=== PATIENT | female | born 1975 | race Caucasian/White ===

== ENCOUNTER 2017-12-02 01:15 | Observation (INO) | payer BC, OTHER ==
[2017-12-02] VITALS (14 sets, daily range): BP systolic 89–113; BP diastolic 51–71; PULSE 57–69; RESP 14–18; TEMP 98–98.4; O2SAT 97–100
[~2017-12-02 01:15] MED LIST: ALBUAER3 INH; AZIT250T3 PO; BENZ100 PO; ERYTOIN10 EACH EYE
[2017-12-02] MEDS ORDERED: IBUP1TAB5 PO (01:57)
--- NOTE | 2017-12-02 02:07 | PD ---
HPI Chief Complaint: Dizziness Time Seen by Provider: 01:28 Travel History International Travel<30 days: No Contact w/Intl Traveler<30days: No Traveled to known affect area: No History of Present Illness HPI The patient is a 42 year old female who presents to the [facility] emergency department with a history of central chest pain, shortness of breath, nausea, diaphoresis that has been intermittently occurring with exercise over the last 2 months. The first episode occurred when she was climbing up the light house. The patient reports that she got lightheaded and nearly passed out. The patient went to her primary care physician, Dr. Briones and did have additional testing done. Additional testing included a myocardial perfusion scan, no appreciable ischemia was noted when this was done on September at [facility]. The patient was noted at that time to have a 55% ejection fraction. She was told that she had valvular heart abnormalities the echo results available for review at this time. The patient reports that she had another episode of this prior to arrival. She denies having a cardiac catheterization. She has not been seen by a bridge painter. The patient reports that she just started her menstrual cycle today. She denies ever having a problem with anemia. She reports that her menstrual cycles are heavy. She reports taking ibuprofen as needed for cramping related to her cycle. She reports having nausea with the chest pain, however no vomiting. She denies any prior history of cardiac disease, DVT, or PE. On review of systems otherwise, the patient denies having any recent fevers, cough or congestion, neck pain, abdominal pain, diarrhea, urinary symptoms, or other neurologic symptoms. LMP: Started today PFSH Past Medical History Narrative Medical The patient's past medical history is reportedly significant for hypoglycemia. Diminished Hearing: No Medical other: Yes (hypoglycemia) ?: Not Past Surgical History Narrative Surgical The patient's past surgical history is significant for a 1. Gynecologic Surgery: Yes () Social History Alcohol Use: No Tobacco Use: No Substance Use: No Allergies-Medications (Allergen,Severity, Reaction): Coded Allergies: No Known Allergies (Unverified Allergy, Unknown, 12/02/17) Reported Meds & Prescriptions Reported Meds & Active Scripts Active Reported Ibuprofen 400 Mg Tab 400 Mg PO Q8H PRN Review of Systems Except as stated in HPI: all other systems reviewed are Neg General / Constitutional: No: Fever Eyes: No: Visual changes HENT: Positive: Lightheadedness, No: Headaches, Congestion Cardiovascular: Positive: Chest Pain or Discomfort, Diaphoresis, Dyspnea on exertion Respiratory: Positive: Shortness of Breath, No: Cough Gastrointestinal: Positive: Nausea, No: Vomiting, Diarrhea, Abdominal Pain Genitourinary: No: Dysuria Musculoskeletal: No: Pain Skin: No Rash Neurologic: Positive: Dizziness, No: Weakness, Focal Abnormalities, Change in Mentation, Slurred Speech, Sensory Disturbance Psychiatric: No: Depression Endocrine: No: Polydipsia Hematologic/Lymphatic: No: Easy Bruising Physical Exam Narrative General: The patient is a well-developed well-nourished female in no acute. Head and Neck exam: Head is normocephalic atraumatic. Eyes: EOMI, pupils are equal round and reactive to light. Nose: Midline septum with pink mucous membranes Mouth: Dentition unremarkable. Moist mucus membranes. Posterior oropharynx is not erythematous. No tonsillar hypertrophy. Uvula midline. Airway patent. Neck: No palpable lymphadenopathy. No nuchal rigidity. No thyromegaly. Cardiovascular: Regular rate and rhythm without murmurs, gallops, or rubs. No pulse deficit to the extremities on simultaneous auscultation and palpation of her radial artery. Lungs: Clear to auscultation bilaterally. No wheezes, rhonchi, or rales. Abdomen: Soft, without tenderness to palpation in all 4 quadrants of the abdomen. No guarding, rebound, or rigidity. Normal bowel sounds are audible. No tenderness on palpation of McBurney's point. Negative Rebolledo sign. Extremities: No clubbing, cyanosis, or edema. 2+ pulses in all 4 extremities. No calf tenderness on palpation. Back: No spinous process tenderness to palpation. No costovertebral angle tenderness to palpation. Neurologic Exam: Grossly nonfocal. Skin Exam: No rash noted. Intact skin that is warm and dry. Data Data Last Documented VS Vital Signs Date Time Temp Pulse Resp B/P (MAP) Pulse Ox O2 Delivery O2 Flow Rate FiO2 12/02/17 02:25 57 14 97/62 (74) 59 14 104/66 (79) 64 14 103/68 (80) 12/02/17 02:12 98 Room Air 12/02/17 01:17 98.1 Orders Orders Electrocardiogram (12/02/17 01:50) Complete Blood Count With Diff (12/02/17 01:50) Comprehensive Metabolic Panel (12/02/17 01:50) Creatine Kinase (Cpk) (12/02/17 01:50) Ckmb (Isoenzyme) Profile (12/02/17 01:50) Troponin I (12/02/17 01:50) B-Type Natriuretic Peptide (12/02/17 01:50) Prothrombin Time / Inr (Pt) (12/02/17 01:50) Act Partial Throm Time (Ptt) (12/02/17 01:50) Magnesium (Mg) (12/02/17 01:50) Chest, Single Ap (12/02/17 01:50) Iv Access Insert/Monitor (12/02/17 01:50) Ecg Monitoring (12/02/17 01:50) Oximetry (12/02/17 01:50) Orthostatic Vital Signs (12/02/17 01:50) Ed Urine Pregnancytest Poc (12/02/17 01:50) Aspirin Chew (Aspirin Chew) (12/02/17 02:45) Sodium Chlor 0.9% 1000 Ml Inj (Ns 1000 M (12/02/17 02:45) CKMB (12/02/17 02:55) CKMB% (12/02/17 02:55) Admit Order (Ed Use Only) (12/02/17 04:34) Activity Bed Rest With Brp (12/02/17 04:34) Vital Signs (Adult) Q4H (12/02/17 04:34) Cardiac Rhythm .As Directed (12/02/17 04:34) Notify Dr: Other .PRN (12/02/17 04:34) Notify Parameters (12/02/17 04:34) Resp Oxygen Nasal Cannula (12/02/17 ) Diet Npo (12/02/17 Breakfast) Ckmb (Isoenzyme) Profile (12/02/17 06:00) Ckmb (Isoenzyme) Profile (12/02/17 09:00) Troponin I (12/02/17 06:00) Troponin I (12/02/17 09:00) Electrocardiogram (12/02/17 06:00) Electrocardiogram (12/02/17 09:00) ^ Obtain (12/02/17 04:34) Sodium Chlor 0.9% 1000 Ml Inj (Ns 1000 M (12/02/17 04:34) Sodium Chloride 0.9% Flush (Ns Flush) (12/02/17 04:45) Sodium Chloride 0.9% Flush (Ns Flush) (12/02/17 09:00) Acetaminophen (Tylenol) (12/02/17 04:45) Discovery Guide / Telemetry CAMACHO.Q8H (12/02/17 04:34) Labs Laboratory Tests Test 12/02/17 02:09 12/02/17 02:55 White Blood Count 8.6 TH/MM3 Red Blood Count 4.67 MIL/MM3 Hemoglobin 13.9 GM/DL Hematocrit 41.4 % Mean Corpuscular Volume 88.7 FL Mean Corpuscular Hemoglobin 29.7 PG Mean Corpuscular Hemoglobin Concent 33.5 % Red Cell Distribution Width 13.7 % Platelet Count 246 TH/MM3 Mean Platelet Volume 9.3 FL Neutrophils (%) (Auto) 63.0 % Lymphocytes (%) (Auto) 25.6 % Monocytes (%) (Auto) 9.0 % Eosinophils (%) (Auto) 1.4 % Basophils (%) (Auto) 1.0 % Neutrophils # (Auto) 5.4 TH/MM3 Lymphocytes # (Auto) 2.2 TH/MM3 Monocytes # (Auto) 0.8 TH/MM3 Eosinophils # (Auto) 0.1 TH/MM3 Basophils # (Auto) 0.1 TH/MM3 CBC Comment DIFF FINAL Differential Comment Prothrombin Time 10.3 SEC Prothromb Time International Ratio 1.0 RATIO Activated Partial Thromboplast Time 23.6 SEC B-Type Natriuretic Peptide 25 PG/ML Blood Urea Nitrogen 9 MG/DL Creatinine 0.71 MG/DL Random Glucose 83 MG/DL Total Protein 7.2 GM/DL Albumin 3.9 GM/DL Calcium Level 8.6 MG/DL Magnesium Level 2.1 MG/DL Alkaline Phosphatase 82 U/L Aspartate Amino Transf (AST/SGOT) 12 U/L Alanine Aminotransferase (ALT/SGPT) 16 U/L Total Bilirubin 0.3 MG/DL Sodium Level 140 MEQ/L Potassium Level 3.7 MEQ/L Chloride Level 107 MEQ/L Carbon Dioxide Level 20.4 MEQ/L Anion Gap 13 MEQ/L Estimat Glomerular Filtration Rate 91 ML/MIN Total Creatine Kinase 102 U/L Creatine Kinase MB 1.0 NG/ML Troponin I LESS THAN 0.02 NG/ML MDM Medical Decision Making Medical Screen Exam Complete: Yes Emergency Medical Condition: Yes Medical Record Reviewed: Yes Differential Diagnosis Acute coronary syndrome, versus pulmonary embolism, versus orthostasis, vasovagal near syncope, versus hypoglycemia, versus symptomatic anemia Narrative Course During the course of the patient's emergency department visit, the patient's history, examination, and differential diagnosis were reviewed with the patient. The patient was placed on a media monitor with oximetry and frequent blood pressure monitoring. The patient had IV access obtained and blood work sent for analysis. The patient will have orthostatic vital signs done. The patient had an EKG done on arrival. The patient's EKG shows sinus bradycardia heart rate of 56, QRS duration is 82 ms, QTC [address] segment elevation. T waves are inverted in V1. Orthostatic vital signs were negative for orthostasis. The patient is however noted to be slightly bradycardic which could be related to her exercise regimen. The patient was initially provided normal saline 1 L IV fluid bolus, aspirin 324 mg p.o. 1. The patient's laboratory studies were reviewed and remarkable for a white count of 8.6, hemoglobin 13.9, platelets 246 with 9 monocytes, CMP is remarkable for CO2 20.4, AST 12, cardiac enzymes within normal limits, BNP 25, PT 10.3, PTT 23.6. Glucose is within normal limits. Radiology studies were reviewed and remarkable for Last Impressions Chest X-Ray 12/02/17 0150 Signed Impressions: CONCLUSION: Negative examination. Given the patient's exercise-induced chest pain with shortness of breath, lightheaded sensation, diaphoresis, the patient will be admitted to the chest pain center for rule out serial cardiac enzyme protocol followed by evaluation by the bridge painter. The patient's results were discussed with the patient, including the plan of care. I explained that further testing and/ or monitoring is indicated based on the patient's history, examination, and/ or laboratory findings. Therefore, I recommended admission for additional evaluation. The patient expressed understanding and was agreeable with this plan. The patient was admitted to the hospital in stable condition and sent to a bed under the care of the chest pain center. Diagnosis Primary Impression: Chest pain, rule out acute myocardial infarction Admitting Information Admitting Physician Requests: Observation Rebecca Sandoval MD Dec 02, 2017 02:07
[2017-12-02 02:16] LABS: AUTOMATED NEUTROPHIL # 5.4 TH/MM3 (1.8-7.7); BASOPHIL # 0.1 TH/MM3 (0-0.2); EOSINOPHIL # 0.1 TH/MM3 (0-0.4); EOSINOPHIL % 1.4 % (0.0-4.0); HEMATOCRIT 41.4 % (35.0-46.0); HEMOGLOBIN 13.9 GM/DL (11.6-15.3); LYMPH % 25.6 % (9.0-44.0); LYMPHOCYTE # 2.2 TH/MM3 (1.0-4.8); MEAN CELL VOLUME 88.7 FL (80.0-100.0); MEAN CORPUSCULAR HEMOGLOBIN 29.7 PG (27.0-34.0); MEAN CORPUSCULAR HGB CONC 33.5 % (32.0-36.0); MEAN PLATELET VOLUME 9.3 FL (7.0-11.0); MONOCYTE # 0.8 TH/MM3 (0-0.9); PLATELET COUNT 246 TH/MM3 (150-450); RED BLOOD COUNT 4.67 MIL/MM3 (4.00-5.30); RED CELL DISTRIBUTION WIDTH 13.7 % (11.6-17.2); WHITE BLOOD COUNT 8.6 TH/MM3 (4.0-11.0)
--- NOTE | 2017-12-02 02:26 | RADRPT ---
EXAM DATE: 12/02/2017 2:16 AM EDT AGE/SEX: 42 years / Female INDICATIONS: Vomiting, syncope, short of breath. CLINICAL DATA: This is the patient's initial encounter. Patient reports that signs and symptoms have been present for 1 day and indicates a pain score of 0/10. MEDICAL/SURGICAL HISTORY: None. None. COMPARISON: No prior exams available for comparison. FINDINGS: A single AP view of the chest demonstrates the lungs to be symmetrically aerated without evidence of mass, infiltrate or effusion. The cardiomediastinal contours are unremarkable. Osseous structures a re intact. CONCLUSION: Negative examination. Electronically signed by: Rubén Ingram MD 12/02/2017 2:25 AM EDT
[2017-12-02 02:27] LABS: PROTHROMBIN TIME - PATIENT 10.3 SEC (9.8-11.6)
[2017-12-02] MEDS ORDERED: ASPIRIN 81 MG CHEW TAB CHEW ONE (02:45)
[2017-12-02] MEDS ORDERED: SODIUM CHLOR 0.9% 1000 ML INJ 1,000 ML IV ONE (02:45)
[2017-12-02 04:07] LABS: ALKALINE PHOSPHATASE 82 U/L (45-117); TOTAL BILIRUBIN ADULT 0.3 MG/DL (0.2-1.0); TOTAL PROTEIN 7.2 GM/DL (6.4-8.2); TROPONIN I LESS THAN 0.02 NG/ML (0.02-0.05)
[2017-12-02 04:09] LABS: ALBUMIN 3.9 GM/DL (3.4-5.0); ALT (GPT) 16 U/L (10-53); AST (GOT) 12 U/L (15-37); BICARBONATE 20.4 MEQ/L (21.0-32.0); BLOOD UREA NITROGEN 9 MG/DL (7-18); CALCIUM 8.6 MG/DL (8.5-10.1); CHLORIDE 107 MEQ/L (98-107); CREATININE 0.71 MG/DL (0.50-1.00); GLOMERULAR FILTRATION RATE 91 ML/MIN (>89); GLUCOSE,RANDOM 83 MG/DL (74-106); MAGNESIUM 2.1 MG/DL (1.5-2.5); SODIUM (NA) 140 MEQ/L (136-145)
[2017-12-02] MEDS ORDERED: ACETAMINOPHEN 500 MG CPLT PO PRN (04:45)
[2017-12-02] MEDS ORDERED: SODIUM CHLORIDE 0.9% FLUSH 10 ML FLUSH IV FLUSH PRN (04:45)
[2017-12-02 07:09] LABS: TROPONIN I LESS THAN 0.02 NG/ML (0.02-0.05)
[2017-12-02] MEDS: SODIUM CHLORIDE 0.9% FLUSH 10 ML FLUSH IV FLUSH SCH ×2 (08:56→21:00)
[2017-12-02] MEDS: SODIUM CHLOR 0.9% 1000 ML INJ 1,000 ML IV SCH ×2 (08:56→14:34)
--- NOTE | 2017-12-02 09:05 | HHI.HP ---
HPI Primary Care Physician Jeremy Cartwright DO Chief Complaint Dizziness History of Present Illness 42-year-old female with no significant history presents emergency room for further evaluation of dizziness. Onset 3 months. No precipitating factors. Becomes dizzy, nauseous, and diaphoretic. In the care of her primary care provider. Completed myocardial perfusion study test October 13 at [facility]. No appreciable ischemia was noted, EF 55%. Continues to have random dizziness episodes. Last episode yesterday evening. Denies chest pain or discomfort. No syncopal episodes. No vision changes or headaches. Review of Systems General: No fatigue,weakness, fever, chills, or recent illness. HEENT: No CHAMBERLAIN, no vision changes, no nasal congestion or drainage, no dysphasia CV: Denies chest pain with dizziness episodes. No palpitations. RESP: No SOB, cough, wheeze, or history of asthma GI: No nausea, vomiting, bowel changes. : No dysuria, urgency, frequency MS: No discomfort or change in ROM NEURO: No change in memory, difficulty with balance, LOC, motor/sensory deficits , no history of seizures PSYCH: No anxiety, depression, or suicidal ideation SKIN: No rashes, no concerning lesions Past Family Social History Allergies: Coded Allergies: No Known Allergies (Unverified Allergy, Unknown, 12/02/17) Past Medical History Hypoglycemia Past Surgical History Reported Medications Reported Meds & Active Scripts Active Reported Ibuprofen 400 Mg Tab 400 Mg PO Q8H PRN Active Ordered Medications Current Medications Medications (Trade) Dose Ordered Sig/Litzy Route Start Time Stop Time Status Last Admin Sodium Chloride 1,000 ml @ 100 mls/hr Q10H IV 12/02/17 04:34 12/02/17 08:56 (NS Flush) 2 ml UNSCH PRN IV FLUSH 12/02/17 04:45 (NS Flush) 2 ml BID IV FLUSH 12/02/17 09:00 12/02/17 08:56 (Tylenol) 500 mg Q4H PRN PO 12/02/17 04:45 Social History No known hypertension, diabetes, hyperlipidemia. Denies smoking, alcohol or illegal drug use. . Endorses an active lifestyle. Past cardiac testing Reports Lexiscan 10/13/2017 no appreciable ischemia, EF 55%. Physical Exam Vital Signs Vital Signs Date Time Temp Pulse Resp B/P (MAP) Pulse Ox O2 Delivery O2 Flow Rate FiO2 12/02/17 08:37 98.1 65 18 89/55 (66) 98 12/02/17 06:20 98.1 58 16 100/60 (73) 100 12/02/17 04:44 100 12/02/17 02:25 57 14 97/62 (74) 59 14 104/66 (79) 64 14 103/68 (80) 12/02/17 02:12 59 16 113/71 (85) 98 Room Air 12/02/17 01:58 59 16 113/71 (85) 100 Room Air 12/02/17 01:17 98.1 69 16 108/51 (70) 100 Physical Exam GENERAL: Alert WN, WD, NAD, pleasant, female HEAD: NC, AT EYES: Sclera clear, conjunctiva without injection CV: RRR, without murmur, rub, gallop, no JVD, RESP: Clear lungs throughout bilateral, no crackles, wheeze, rhonchi, symmetrical chest rise, nonlabored, able to speak in full sentences ABD: Soft, NT, ND, no masses, positive bowel tones EXT: Pulses +2x4, no dependent edema MS: Normal tone x4 extremities, no obvious deformities, full range of motion NEURO: CN II through CN XII grossly intact, motor strength 5/5 PSYCH: A+O x3, flat affect, appropriate speech, mood, insight and judgment SKIN: Normal turgor, normal texture Laboratory Laboratory Tests Test 12/02/17 02:09 12/02/17 02:55 12/02/17 06:30 White Blood Count 8.6 Red Blood Count 4.67 Hemoglobin 13.9 Hematocrit 41.4 Mean Corpuscular Volume 88.7 Mean Corpuscular Hemoglobin 29.7 Mean Corpuscular Hemoglobin Concent 33.5 Red Cell Distribution Width 13.7 Platelet Count 246 Mean Platelet Volume 9.3 Neutrophils (%) (Auto) 63.0 Lymphocytes (%) (Auto) 25.6 Monocytes (%) (Auto) 9.0 Eosinophils (%) (Auto) 1.4 Basophils (%) (Auto) 1.0 Neutrophils # (Auto) 5.4 Lymphocytes # (Auto) 2.2 Monocytes # (Auto) 0.8 Eosinophils # (Auto) 0.1 Basophils # (Auto) 0.1 CBC Comment DIFF FINAL Differential Comment Prothrombin Time 10.3 Prothromb Time International Ratio 1.0 Activated Partial Thromboplast Time 23.6 B-Type Natriuretic Peptide 25 Blood Urea Nitrogen 9 Creatinine 0.71 Random Glucose 83 Total Protein 7.2 Albumin 3.9 Calcium Level 8.6 Magnesium Level 2.1 Alkaline Phosphatase 82 Aspartate Amino Transf (AST/SGOT) 12 Alanine Aminotransferase (ALT/SGPT) 16 Total Bilirubin 0.3 Sodium Level 140 Potassium Level 3.7 Chloride Level 107 Carbon Dioxide Level 20.4 Anion Gap 13 Estimat Glomerular Filtration Rate 91 Total Creatine Kinase 102 81 Creatine Kinase MB 1.0 Troponin I LESS THAN 0.02 LESS THAN 0.02 Result Diagram: 12/02/17 0209 12/02/17 0255 Imaging Last 48 hours Impressions Chest X-Ray 12/02/17 0150 Signed Impressions: CONCLUSION: Negative examination. Course EKG Normal sinus bradycardia, no ST segment changes Caprini VTE Risk Assessment Caprini VTE Risk Assessment: No/Low Risk (score <= 1) Caprini Risk Assessment Model Point Value = 1 Point Value = 2 Point Value = 3 Point Value = 5 Age 41-60 Minor surgery BMI > 25 kg/m2 Swollen legs Varicose veins or History of unexplained or recurrent spontaneous Oral contraceptives or hormone replacement Sepsis (< 1 month) Serious lung disease, including pneumonia (< 1 month) Abnormal pulmonary function Acute myocardial infarction Congestive heart failure (< 1 month) History of inflammatory bowel disease Medical patient at bed rest Age 61-74 Arthroscopic surgery Major open surgery (> 45 min) Laparoscopic surgery (> 45 min) Malignancy Confined to bed (> 72 hours) Immobilizing plaster cast Central venous access Age >= 75 History of VTE Family history of VTE Factor V Leiden Prothrombin [id number] Lupus anticoagulant Anticardiolipin antibodies Elevated serum homocysteine Heparin-induced thrombocytopenia Other congenital or acquired thrombophilia Stroke (< 1 month) Elective arthroplasty Hip, pelvis, or leg fracture Acute spinal cord injury (< 1 month) Prophylaxis Regimen Total Risk Factor Score Risk Level Prophylaxis Regimen 0-1 Low Early ambulation 2 Moderate Order ONE of the following: *Sequential Compression Device (SCD) *Heparin 5000 units SQ BID 3-4 Higher Order ONE of the following medications: *Heparin 5000 units SQ TID *Enoxaparin/Lovenox 40 mg SQ daily (WT < 150 kg, CrCl > 30 mL/min) *Enoxaparin/Lovenox 30 mg SQ daily (WT < 150 kg, CrCl > 10-29 mL/min) *Enoxaparin/Lovenox 30 mg SQ BID (WT < 150 kg, CrCl > 30 mL/min) AND/OR *Sequential Compression Device (SCD) 5 or more Highest Order ONE of the following medications: *Heparin 5000 units SQ TID (Preferred with Epidurals) *Enoxaparin/Lovenox 40 mg SQ daily (WT < 150 kg, CrCl > 30 mL/min) *Enoxaparin/Lovenox 30 mg SQ daily (WT < 150 kg, CrCl > 10-29 mL/min) *Enoxaparin/Lovenox 30 mg SQ BID (WT < 150 kg, CrCl > 30 mL/min) AND *Sequential Compression Device (SCD) Assessment and Plan Assessment and Plan Admitted chest pain center. Monitored on telemetry overnight. Ruled out with 3 sets of EKGs and cardiac enzymes. Seen and evaluated by Dr. Larisa Overton. Proceed with CT coronary angiogram, recent normal myocardial perfusion scan. If testing unremarkable plans to discharge home with follow-up with PCP. Patient and verbalizes understanding and agreeable to plan of care. María Blanco Dec 02, 2017 09:05
--- NOTE | 2017-12-02 09:12 | EKG ---
Date Performed: 12/02/2017 Time Performed: 02:21:19 PTAGE: 42 years EKG: SINUS BRADYCARDIA POSSIBLE RIGHT VENTRICULAR CONDUCTION DELAY BORDERLINE ECG NO PREVIOUS TRACING DOCTOR: Larisa Overton Interpretating Date/Time 12/02/2017 09:11:26
[2017-12-02 11:34] LABS: TROPONIN I LESS THAN 0.02 NG/ML (0.02-0.05)
[2017-12-02] MEDS ORDERED: NITROGLYCERIN 0.4 MG SL 25 TABS/BTL SL ONE (12:01)
[2017-12-02] MEDS ORDERED: IOHEXOL 350 MG/ML 10 ML VIAL (for RAD DIAG) IVCONTRAST ONE (12:50)
--- NOTE | 2017-12-02 16:28 | HHI.DCPOC ---
Discharge Care Plan Diagnosis: (1) Dizziness of unknown cause Goals to Promote Your Health * To prevent worsening of your condition and complications * To maintain your health at the optimal level Directions to Meet Your Goals Take your medications as prescribed Follow your dietary instruction Follow activity as directed Keep your appointments as scheduled Take your immunizations and boosters as scheduled If your symptoms worsen call your PCP, if no PCP go to Urgent Care Center or Emergency Room Smoking is Dangerous to Your Health. Avoid second hand smoke Call the 24-hour hour crisis hotline for domestic abuse at María Blanco Dec 02, 2017 16:28
--- NOTE | 2017-12-02 20:49 | RADRPT ---
EXAM DATE: 12/02/2017 5:45 PM EDT AGE/SEX: 42 years / Female INDICATIONS: Chest pain. CLINICAL DATA: This is the patient's initial encounter. Patient reports that signs and symptoms have been present for 1 day and indicates a pain score of 3/10. MEDICAL/SURGICAL HISTORY: None. section. RADIATION DOSE: 3.62 CTDI (mGy) COMPARISON: No prior exams available for comparison. TECHNIQUE: Volumetric scanning was performed using a multi-row detector CT scanner during bolus inf usion of 75 ml Omnipaque 350 (iohexol) nonionic water-soluble contrast as a single exam dose. Image s were reconstructed using a retrospective gating algorithm including single sector and multi-sector algorithms at multiple phases of the cardiac cycle. Images were interpreted using a combination of 2D and 3D visualization modes including curved planar reformation, thin slab maximum intensity projecti on and volume rendering. Using automated exposure control and adjustment of the mA and/or kV accordin g to patient size, radiation dose was kept as low as reasonably achievable to obtain optimal diagnost ic quality images. DICOM format image data is available electronically for review and comparison. FINDINGS: VESSEL ANALYSIS: There are three aortic valve leaflets with normal origin of the coronary ostia. DOMINANCE: The coronary system is right dominant. LEFT MAIN: Normal size vessel without calcification or stenosis. LAD: Normal size vessel without calcification or stenosis. CIRCUMFLEX: Normal size vessel without calcification or stenosis. RCA: Normal size vessel without calcification or stenosis OTHER: Visualized portions of the lungs are clear. No pericardial effusion or mediastinal adenopathy . Osseous structures are unremarkable without focal lytic or blastic bony lesions. CONCLUSION: 1. Negative CTA Coronary. Electronically signed by: Calderon Tellez MD 12/02/2017 8:48 PM EDT
--- NOTE | 2017-12-03 14:09 | EKG ---
Date Performed: 12/02/2017 Time Performed: 10:52:07 PTAGE: 42 years EKG: SINUS BRADYCARDIA POSSIBLE RIGHT VENTRICULAR CONDUCTION DELAY BORDERLINE ECG PREVIOUS TRACING : 12/02/2017 02.21 DOCTOR: Rubén Humphrey Interpretating Date/Time 12/03/2017 14:08:36
== END 2017-12-02 22:23 | disposition home or self-care (01) ==
LOC: NEPE 01:15 → NEDA 04:36 → NEPGCP 06:01
PROVIDERS: ADMIT Internal Medicine Cardiovascular Disease; ATTEND Internal Medicine Cardiovascular Disease
DX: R42 Dizziness and giddiness (principal); R61 Generalized hyperhidrosis; R11.0 Nausea; R07.9 Chest pain, unspecified; R06.02 Shortness of breath; E16.2 Hypoglycemia, unspecified; R00.1 Bradycardia, unspecified; R94.31 Abnormal electrocardiogram [ECG] [EKG]
CPT/HCPCS: 71045; 75574; 80053; 82550; 82552; 83735; 83880; 84484; 84702; 84703; 85025; 85610; 85730; 93005; 96360; 96361; 99285; G0378; J7030; Q9967